=== PATIENT | male | born 2000 | race Caucasian/White ===

== ENCOUNTER → 2023-10-12 17:08 | Outpatient (CLI) | payer OTHER, SELFPAY ==
[2023-10-12 18:01] LABS: Add Manual Diff / Slide Review NO; Basophils Absolute Auto 100 /uL (0-100); Basophils Percent Auto 1.1 % (0-2); Eosinophils Absolute Auto 100 /uL (0-450); Eosinophils Percent Auto 0.9 % (2-4); Hematocrit 42.6 % (41-53); Hemoglobin 14.5 g/dL (13.5-17.5); Lymphocytes Absolute Auto 3000 /uL (1100-4500); Mean Corpuscular HGB Conc 33.9 % (30-36); Mean Corpuscular Hemoglobin 29.7 PG (26-34); Mean Corpuscular Volume 87.6 fL (80-100); Monocytes Absolute Auto 600 /uL (0-900); Monocytes Percent Auto 6.3 % (3-14); Neutrophils Absolute Auto 6400 /uL (1500-7000); Neutrophils Percent Auto 62.7 % (50-75); Platelet Count 370 X10^3/uL (150-400); Red Blood Cell Count 4.87 X10^6/uL (4.5-5.9); Red Cell Distribution Width 13.4 % (11.6-14.8); White Blood Cell Count 10.2 X10^3/uL (4.5-11.0)
[2023-10-12 18:04] LABS: Hemoglobin A1C% w Est Avg Glu 5.2 % (4.0-6.0)
[2023-10-12 18:27] LABS: Alanine Aminotransferase 30 IU/L (<50); Albumin 4.7 g/dL (3.5-5.0); Albumin Globulin Ratio 1.3 (1.0-2.8); Alkaline Phosphatase 48 U/L (38-126); Aspartate Aminotransferase 29 IU/L (17-59); BUN Creatinine Ratio 19.4 (6-22); Bilirubin Total 0.4 mg/dL (0.2-1.3); Blood Urea Nitrogen 13 mg/dL (9-20); Calcium 9.8 mg/dL (8.4-10.2); Carbon Dioxide 25 mmol/L (22-32); Chloride 104 mmol/L (98-107); Cholesterol 177 mg/dL (140-199); Estimated Glomerular Filt Rate > 60 mL/min (>60); Globulin 3.6 g/dL (1.7-4.1); Glucose 103 mg/dL (70-100); HDL Cholesterol 39 mg/dL (40-60); HEMOLYSIS 28 (0-50); LDL Cholesterol Calculated 109 mg/dL (<100); Potassium 3.9 mmol/L (3.4-5.1); Sodium 138 mmol/L (137-145); Total Protein 8.3 g/dL (6.3-8.2); Triglycerides 146 mg/dL (35-150)
== END ==
PROVIDERS: PCP Family Medicine; Referring Provider Family Medicine; Visit Provider Family Medicine
DX: R53.82 Chronic fatigue, unspecified (principal); R07.89 Other chest pain
CPT/HCPCS: 36415; 80053; 80061; 83036; 84443; 85025

== ENCOUNTER → 2024-10-06 09:56 | Outpatient (CLI) | payer BC, SELFPAY ==
[2024-10-06 10:55] LABS: Influenza A - CEPHEID Flu A NEGATIVE (NEGATIVE); Influenza B - CEPHEID Flu B NEGATIVE (NEGATIVE); Respiratory Syncytial Virus Negative (Negative)
[2024-10-06 10:56] LABS: COVID-19 CEPHEID 4-PLEX PCR Negative (Negative)
== END ==
PROVIDERS: PCP Family Medicine; Visit Provider Nurse Practitioner Family
DX: J02.9 Acute pharyngitis, unspecified (principal); R05.1 Acute cough
CPT/HCPCS: 0241U; 87070

== ENCOUNTER → 2024-10-23 15:13 | Outpatient (CLI) | payer BC, SELFPAY ==
[2024-10-23 15:58] LABS: Alanine Aminotransferase 55 IU/L (<50); Albumin 4.8 g/dL (3.5-5.0); Albumin Globulin Ratio 1.5 (1.0-2.8); Alkaline Phosphatase 51 U/L (38-126); Aspartate Aminotransferase 33 IU/L (17-59); BUN Creatinine Ratio 14.8 (6-22); Bilirubin Total 1.1 mg/dL (0.2-1.3); Blood Urea Nitrogen 13 mg/dL (9-20); Calcium 9.9 mg/dL (8.4-10.2); Carbon Dioxide 25 mmol/L (22-32); Chloride 100 mmol/L (98-107); Cholesterol 223 mg/dL (140-199); Estimated Glomerular Filt Rate > 60 mL/min (>60); Globulin 3.3 g/dL (1.7-4.1); Glucose 101 mg/dL (70-100); HDL Cholesterol 44 mg/dL (40-60); HEMOLYSIS 15 (0-50); LDL Cholesterol Calculated 163 mg/dL (<100); Potassium 3.8 mmol/L (3.4-5.1); Sodium 134 mmol/L (137-145); Total Protein 8.1 g/dL (6.3-8.2); Triglycerides 80 mg/dL (35-150)
[2024-10-23 16:00] LABS: Hemoglobin A1C% w Est Avg Glu 5.2 % (4.0-6.0)
[2024-10-25 15:51] LABS: HIV 1 & 2 Ab/Ag 4th Gen Combo NEGATIVE (NEGATIVE); Hep C Virus Ab w/Reflex Quant NEGATIVE s/c (NEGATIVE)
== END ==
PROVIDERS: PCP Family Medicine; Referring Provider Family Medicine; Visit Provider Family Medicine
DX: Z00.00 Encounter for general adult medical examination without abnormal findings (principal); I10 Essential (primary) hypertension; E66.811 Obesity, class 1
CPT/HCPCS: 36415; 80053; 80061; 83036; 86803; 87389

== ENCOUNTER 2025-03-16 18:27 | Emergency (ER) | payer BC, SELFPAY ==
[2025-03-16 18:29] VITALS: BP 141/85; PULSE 115; RESP 18; TEMP 37.1; O2SAT 97; BMI 29.6
[2025-03-16] MEDS: ACETAMINOPHEN 325 MG TABLET 650 MG PO (18:42)
--- NOTE | 2025-03-16 18:46 | ED_ITS ---
HPI - General Adult General Chief complaint: Ear Stated complaint: ear px, pink eye Time Seen by Provider: 03/16/25 18:37 Source: patient Mode of arrival: Ambulatory History of Present Illness HPI narrative: 24-year-old male with dry cough last few days, increasing right ear pain without trauma or drainage, also some discharge from in the right eye. Currently not on any oral or topical antibiotic therapies. Denies chest pain or shortness of breath. Denies nausea or vomiting. Has had some recent loose stools. No black or red stools. Related Data Previous Rx's Medication Instructions Recorded amoxicillin 875 mg tablet 875 mg PO BID dental infection 10 03/16/25 days #20 tabs erythromycin 5 mg/gram (0.5 %) eye 1 applic EYE-LEFT TID eye 03/16/25 ointment infection 7 days #3.5 grams Allergies Allergy/AdvReac Type Severity Reaction Status Date / Time No Known Drug Allergies Allergy Unverified 10/17/24 16:27 Patient History Medical History (Updated 03/16/25 @ 19:14 by Bahman Iniguez MD) Obesity (BMI 30.0-34.9) Autism Hypertension Surgical History (Updated 11/08/23 @ 20:06 by Syeda Jesus) Anesthesia History of knee surgery (~1999) Family History (Updated 11/08/23 @ 20:08 by Syeda Jesus) Father Hypertension History of heart disease Hyperlipidemia Mother History of heart disease Hypertension Hyperlipidemia Social History Smoking Status: Never smoker Smoking Status: Never smoker Exam Narrative Exam Narrative: GENERAL: Well-developed patient, in mild distress. HEAD: Atraumatic. Normocephalic. EYES: Pupils equal round and reactive. Extraocular motions intact. No scleral icterus. Slight injection right eye, with dried exudate on eyelashes right side. Normal-appearing left eye without redness or exudate. ENT: Nose without bleeding, purulent drainage. Throat without erythema, tonsillar hypertrophy or exudate. Airway patent. Right TM dull with loss of landmarks, no redness, no EAC fluid, no winging out of pinna. Left TM normal- appearing, left EAC normal-appearing. NECK: Trachea midline. Non tender CARDIOVASCULAR: Regular rate and rhythm without murmurs, gallops, or rubs. RESPIRATORY: Clear to auscultation. Breath sounds equal bilaterally. No wheezes, rales, or rhonchi. GASTROINTESTINAL: Abdomen soft, non-tender, nondistended. EXTREMITIES: No edema or joint tenderness. BACK: Nontender without deformity or crepitance. No flank tenderness. NEURO: AOx3. Motor functions grossly nonfocal SKIN: No rash or erythema of visible areas Initial Vital Signs Initial Vital Signs: Vital Signs Temperature 98.8 F 03/16/25 18:29 Pulse Rate 115 H 03/16/25 18:29 Respiratory Rate 18 03/16/25 18:29 Blood Pressure 141/85 H 03/16/25 18:29 Pulse Oximetry 97 03/16/25 18:29 Oxygen Delivery Method Room Air 03/16/25 18:29 Course Orders Ordered: Discontinued Medications Acetaminophen (Acetaminophen 325 Mg Tablet) 650 mg PO NOW ONE Stop: 03/16/25 18:37 Last Admin: 03/16/25 18:42 Dose: 650 mg Documented By: NEIL Amoxicillin (Amoxicillin 250 Mg Capsule) 1,000 mg PO NOW ONE Stop: 03/16/25 19:08 Last Admin: 03/16/25 19:10 Dose: 1,000 mg Documented By: NEIL Erythromycin (Erythromycin Ophth 1 Gm Oint) 1 applic EYE-RIGHT NOW ONE Stop: 03/16/25 19:08 Last Admin: 03/16/25 19:10 Dose: 1 applic Documented By: NEIL Vital Signs Vital signs: Vital Signs - 8 hr 03/16/25 18:29 03/16/25 19:21 Temperature 98.8 F 98.3 F Pulse Rate 115 H 93 H Respiratory Rate 18 16 Blood Pressure 141/85 H 124/78 Pulse Oximetry 97 99 Oxygen Delivery Method Room Air Room Air Medical Decision Making [facility] Narrative Medical decision making narrative: 24-year-old male with recent upper respiratory symptoms cough with loose stool, right eye exudate and redness, right ear pain, dullness TM on exam, possible right otitis media. NKDA. Amoxicillin 1st dose here in ED, prescription sent to his pharmacy. Topical erythromycin 1st dose in ED, prescription sent to pharmacy to use in right eye. Tylenol/Motrin advised for fever and pain control as needed. Discharged home, return precautions discussed. Home with family. Discharge Plan Departure Patient Disposition: Home Clinical Impression: Upper respiratory infection, Otitis media, Viral syndrome, Conjunctivitis Activity Restrictions/Additional Instructions: Recent cough, with some loose stools nonbloody, increasing right-sided ear pain without trauma, right-sided eye discharge. Most consistent with viral syndrome. On examination however of the right eardrum there is some dullness and loss of landmarks, possible otitis media middle ear infection on that side. Also injection with exudate on the right eye, unilateral, consider bacterial infection on that side. Topical erythromycin for the eye, apply ribbon as directed to the affected eye. Take oral amoxicillin antibiotic for ear infection as directed. Recheck with your regular doctor if not improving in the next few days. Return to this/nearest emergency department for any change worsening symptoms or any concerns prior. Prescriptions: New amoxicillin 875 mg tablet 875 mg PO BID 10 Days Qty: 20 0RF erythromycin 5 mg/gram (0.5 %) ointment 1 applic EYE-LEFT TID 7 Days Qty: 3.5 0RF Referrals: Daisy Kimble DO [Primary Care Provider] - Stand Alone Forms: Patient Portal/API/Survey
[2025-03-16] MEDS: AMOXICILLIN 250 MG CAPSULE 1000 MG PO (19:10)
[2025-03-16] MEDS: ERYTHROMYCIN OPHTH 1 GM OINT 1 APPLIC EYE-RIGHT (19:10)
[2025-03-16 19:21] VITALS: BP 124/78; PULSE 93; RESP 16; TEMP 36.8; O2SAT 99
== END 2025-03-16 19:22 | disposition home or self-care (01) ==
PROVIDERS: Emergency Provider Emergency Medicine; PCP Family Medicine
DX: J06.9 Acute upper respiratory infection, unspecified (principal); H66.91 Otitis media, unspecified, right ear; H10.9 Unspecified conjunctivitis
CPT/HCPCS: 99283

== ENCOUNTER 2025-03-30 18:17 | Emergency (ER) | payer BC, SELFPAY ==
[2025-03-30 18:25] VITALS: BP 140/85; PULSE 102; RESP 15; TEMP 36.8; O2SAT 96; BMI 29.7
--- NOTE | 2025-03-31 18:01 | ED.WOUNDLAC ---
HPI - Wound/Laceration General Chief Complaint: Wound/Laceration Stated Complaint: Head Laceration Source: patient Mode of arrival: Ambulatory Related Data Allergies Allergy/AdvReac Type Severity Reaction Status Date / Time No Known Drug Allergies Allergy Unverified 10/17/24 16:27 Patient History Medical History (Updated 03/31/25 @ 00:00 by ) Obesity (BMI 30.0-34.9) Autism Hypertension Surgical History (Updated 11/08/23 @ 20:06 by Syeda Jesus) Anesthesia History of knee surgery (~1999) Family History (Updated 11/08/23 @ 20:08 by Syeda Jesus) Father Hypertension History of heart disease Hyperlipidemia Mother History of heart disease Hypertension Hyperlipidemia Social History Smoking Status: Never smoker Smoking Status: Never smoker Exam Initial Vital Signs Initial Vital Signs: Vital Signs Temperature 98.3 F 03/30/25 18:25 Pulse Rate 102 H 03/30/25 18:25 Respiratory Rate 15 03/30/25 18:25 Blood Pressure 140/85 03/30/25 18:25 Pulse Oximetry 96 03/30/25 18:25 Oxygen Delivery Method Room Air 03/30/25 18:25 Discharge Plan Departure Patient Disposition: Left Without Being Seen Clinical Impression: Patient left without being seen
== END 2025-03-30 19:32 | disposition left against medical advice (07) ==
PROVIDERS: Emergency Provider Family Medicine; PCP Family Medicine
CPT/HCPCS: 99281